=== PATIENT | male | born 1955 | race Caucasian/White ===

== ENCOUNTER 2022-08-26 11:31 | Emergency (ER) | payer MEDICARE ==
[2022-08-26 12:05] VITALS: BP 132/72
[2022-08-26 14:01] VITALS: BP 110/61
[2022-08-26] MEDS ORDERED: HYDROCO/APAP1 TA9 PO (15:30)
[2022-08-26 15:32] VITALS: BP 110/61
== END 2022-08-26 15:42 | disposition home or self-care (01) ==
LOC: ED 11:31
DX: S42.112A Displaced fracture of body of scapula, left shoulder, initial encounter for closed fracture (principal); V18.0XXA Pedal cycle driver injured in noncollision transport accident in nontraffic accident, initial encounter; Y93.55 Activity, bike riding

== ENCOUNTER 2024-09-08 08:42 | Emergency (ER) | payer MEDICARE, OTHER ==
[~2024-09-08] VITALS: Ht 182.9 cm; Wt 95.0 kg
[~2024-09-08 08:42] MED LIST: HYDROCO/APAP1 TA9 PO
[2024-09-08] MEDS ORDERED: KETOROLAC TROMETHAMINE 30 MG/ML SDV IV ONE (09:00)
[2024-09-08] MEDS ORDERED: ONDANSETRON HCl 4 MG/2 ML SDV IV ONE (09:05)
[2024-09-08] MEDS ORDERED: SODIUM CHLORIDE 0.9% 1,000 ML IV ONE (09:05)
[2024-09-08 09:10] VITALS: BP 134/89
[2024-09-08 09:16] VITALS: BP 139/64
[2024-09-08 09:26] LABS: BASO% 0.6 % (0-3); EOS% 2.4 % (0-8); HEMATOCRIT 41.6 % (39.0-50.0); IMMATURE GRANULOCYTES 0.1 % (0.0-5.0); LYMPH% 29.5 % (15-41); MEAN CELL VOLUME 87.6 fL CALC (80.0-100.0); MEAN CORPUSCULAR HGB 29.5 pG CALC (26.0-32.0); MEAN CORPUSCULAR HGB CONC 33.7 g/dL CAL (32.0-36.0); MONO% 7.8 % (2-13); NEUT# 3.97 thou/uL (1.82-7.42); NEUT% 59.6 % (42-76); RED BLOOD COUNT 4.75 mill/uL (4.70-6.10); RED CELL DISTRI WIDTH 12.8 % (11.5-15.5); URINE BILIRUBIN - DIPSTICK Negative (NEGATIVE); URINE BLOOD DIPSTICK Large (NEGATIVE); URINE GLUCOSE - DIPSTICK Negative (NEGATIVE); URINE KETONE Negative (NEGATIVE); URINE LEUK ESTERASE Negative (NEGATIVE); URINE NITRITE - DIPSTICK Negative (Negative); URINE PH 5.5 (4.5-8.0); URINE PROTEIN - DIPSTICK 100 mg/dL (NEG-TRACE); URINE SPECIFIC GRAVITY 1.025; URINE UROBILINOGEN - DIPSTICK 0.2 E.U./dL (0.2)
[2024-09-08 09:35] LABS: URINE COLOR Yellow
[2024-09-08 09:38] LABS: URINE BACTERIA FEW hpf; URINE MUCUS MODERATE hpf (NONE-FEW); URINE RBC TNTC RBC/hpf (0-5); URINE SQUAMOUS EPITHELIAL CELL RARE EPI/hpf (0-FEW)
[2024-09-08 09:43] LABS: ALBUMIN 4.6 g/dL (3.2-5.0); BILIRUBIN, TOTAL 0.7 mg/dL (0.2-1.3); CREATININE 0.8 mg/dL (0.7-1.3); POTASSIUM 4.5 mmol/l (3.5-5.1); TOTAL PROTEIN 7.8 g/dL (6.3-8.2)
[2024-09-08 09:46] VITALS: BP 128/71
[2024-09-08] MEDS ORDERED: TAMSULOSIN0.4 MG PO (09:59)
[2024-09-08] MEDS ORDERED: TRAMADOL HYDROC50 M1 PO (09:59)
[2024-09-08] MEDS ORDERED: ZOFRAN4 MG/TAB PO (09:59)
[2024-09-08] MEDS ORDERED: TORADOL PO (09:59)
[2024-09-08 10:00] VITALS: BP 130/74
[2024-09-08 10:02] VITALS: BP 130/74
== END 2024-09-08 10:10 | disposition home or self-care (01) ==
LOC: ED 08:42
PROVIDERS: Family Medicine
DX: N13.2 Hydronephrosis with renal and ureteral calculous obstruction (principal); Z87.442 Personal history of urinary calculi
CPT/HCPCS: J2405